=== PATIENT | female | born 1970 ===

== ENCOUNTER 2016-12-28 00:16 | Emergency (ER) | payer SELFPAY ==
[2016-12-28 00:43] VITALS: RESP 20; O2SAT 97
[2016-12-28] MEDS ORDERED: Sodium Chloride 0.9% 1,000 ML IV ONE (01:21)
[2016-12-28] MEDS ORDERED: Sodium Chloride 0.9% 1,000 ML ONE (01:40)
[2016-12-28 01:53] LABS: RBC URINE < 1 /hpf (0-3); URINE BILIRUBIN NEGATIVE (NEGATIVE); URINE BLOOD NEGATIVE (NEGATIVE); URINE COLOR Yellow (YELLOW); URINE GLUCOSE (UA) NORMAL (Normal); URINE KETONE NEGATIVE (NEGATIVE); URINE LEUKOCYTE ESTERASE NEG Leu/uL (Negative); URINE PROTEIN NEGATIVE (NEGATIVE); URINE UROBILINOGEN NORMAL mg/dL (0.2-1.0); WBC URINE 1 /hpf (0-5)
[2016-12-28 02:07] LABS: BASO # 0.1 K/uL (0.0-0.2); BASO % 0.9 % (0.0-2.0); EOS # 0.2 K/uL (0.0-0.7); EOS % 2.2 % (0.0-4.0); HEMATOCRIT 38.7 % (34.0-47.0); LYMPH % 23.4 % (20.0-40.0); MEAN CELL VOLUME 91.9 fL (81.0-99.0); MEAN CORPUSCULAR HEMOGLOBIN 30.4 pg (27.0-31.0); MEAN CORPUSCULAR HGB CONC 33.1 g/dL (33.0-37.0); MEAN PLATELET VOLUME 8.2 fL (7.2-11.7); MONO # 0.6 K/uL (0.0-0.8); MONO % 7.3 % (0.0-10.0); NRBC % 0.1 % (0.0-2.0); RED CELL DISTRIBUTION WIDTH 13.3 % (11.5-14.5); WHITE BLOOD COUNT 8.7 K/uL (4.8-10.8)
[2016-12-28 02:18] LABS: CHLORIDE 103 mmol/L (98-107); SODIUM 139 mmol/L (132-148)
[2016-12-28 02:19] LABS: POTASSIUM 3.9 mmol/L (3.6-5.2)
[2016-12-28 02:21] LABS: ALB/GLOB RATIO 1.5 (1.0-2.1); ALKALINE PHOSPHATASE 116 U/L (38-126); ALT/SGPT 24 U/L (9-52); AST/SGOT 19 U/L (14-36); BILIRUBIN,TOTAL 0.4 mg/dL (0.2-1.3); BLOOD UREA NITROGEN 14 mg/dL (7-17); CALCIUM 8.8 mg/dl (8.6-10.4); CARBON DIOXIDE 26 mmol/L (22-30); GFR AFRICAN-AMERICAN > 60; GLUCOSE,RANDOM 100 mg/dL (65-105)
[2016-12-28] MEDS ORDERED: Iodixanol 320 mg/ml 150 ml Bottle IV ONE (04:00)
--- NOTE | 2016-12-28 05:17 | C.PDOC ---
History Of Present Illness Patient is a 46 year old female who presents to the ER with a complaint of LLQ pain for several weeks. Patient states it begins at her back and radiates towards the abdomen and left leg. Patient also reports having vaginal bleeding several days ago which patient reports as abnormal since she had a hysterectomy done years ago. Denies fever, chest pain, SOB, dysuria or recent travel. Time Seen by Provider: 12/28/16 01:05 Chief Complaint (Nursing): Abdominal Pain History Per: Patient History/Exam Limitations: no limitations Onset/Duration Of Symptoms: Days (weeks) Current Symptoms Are (Timing): Still Present Location Of Pain/Discomfort: LLQ Radiation Of Pain To:: Leg, Other (Abdomen from back) Quality Of Discomfort: Unable To Describe Associated Symptoms: denies: Fever, Chest Pain, Urinary Symptoms, Other (SOB) Exacerbating Factors: None Alleviating Factors: None Recent travel outside of the [place]: No Abnormal Vaginal Bleeding: Yes Past Medical History Reviewed: Historical Data, Nursing Documentation, Vital Signs Vital Signs: Last Vital Signs Temp 98.0 F 12/28/16 04:55 Pulse 78 12/28/16 05:15 Resp 20 12/28/16 05:15 BP 124/78 12/28/16 05:15 Pulse Ox 97 12/28/16 05:38 - Medical History PMH: No Chronic Diseases Surgical History: No Surg Hx Family History: States: Unknown Family Hx - Social History Hx Alcohol Use: Yes Hx Substance Use: No - Immunization History Hx Tetanus Toxoid Vaccination: Yes Hx Influenza Vaccination: Yes Hx Pneumococcal Vaccination: No Review Of Systems Constitutional: Negative for: Fever Cardiovascular: Negative for: Chest Pain Respiratory: Negative for: Shortness of Breath Gastrointestinal: Positive for: Abdominal Pain (LLQ) Genitourinary: Positive for: Vaginal Bleeding. Negative for: Dysuria Physical Exam - Physical Exam Appears: Non-toxic, No Acute Distress Skin: Normal Color, Warm, Dry, No Pale, No Rash Head: Atraumatic, Normacephalic Eye(s): bilateral: Normal Inspection Ear(s): Bilateral: Normal Oral Mucosa: Moist Neck: Normal ROM, Supple Chest: Symmetrical, No Tenderness Cardiovascular: Rhythm Regular, No Friction Rub, No Murmur Respiratory: Normal Breath Sounds, No Rales, No Rhonchi, No Wheezing Gastrointestinal/Abdominal: Bowel Sounds (active), Soft, Tenderness (Mild inconsistent LLQ tenderness), No Guarding, No Hernia Back: Normal Inspection, No CVA Tenderness Extremity: Normal ROM, No Tenderness, No Swelling Neurological/Psych: Oriented x3, Normal Speech, Normal Cognition, Normal Motor, Normal Sensation ED Course And Treatment - Laboratory Results Result Diagrams: 12/28/16 02:04 12/28/16 02:04 O2 Sat by Pulse Oximetry: 97 (Room air) Pulse Ox Interpretation: Normal - CT Scan/US CT abd/pel w/ IV contrast Other Rad Studies (CT/US): Read By Radiologist, Radiology Report Reviewed CT/US Interpretation: EXAM: CT Abdomen and Pelvis With Intravenous Contrast. CLINICAL HISTORY: 46 years old, female; Pain; Abdominal pain; Flank; Left lower quadrant (llq); Prior surgery; Surgery. date: <1 month; Additional info: Llq abd pain x2 weeks, l flank pain. TECHNIQUE: Axial computed tomography images of the abdomen and pelvis with intravenous contrast. This CT. exam was performed using one or more of the following dose reduction techniques: automated. exposure control, adjustment of the mA and/or kV according to patient size, and/or use of iterative. reconstruction technique. Coronal and sagittal reformatted images were created and reviewed. CONTRAST: 100 mL of [id number] administered intravenously. EXAM DATE/TIME: Exam ordered 12/28/2016 1: 21 AM. COMPARISON: No relevant prior studies available. FINDINGS: Lower thorax: Atelectasis in the bases. ABDOMEN: Liver: Fatty liver. Gallbladder and bile ducts: Unremarkable. No calcified stones. No ductal dilation. Pancreas : Unremarkable. No mass. No ductal dilation. Spleen: Unremarkable. No splenomegaly. Adrenals: Unremarkable. No mass. Kidneys and ureters: Unremarkable. No solid mass. No hydronephrosis. Stomach and bowel: Moderate fecal retention. Appendix: No findings to suggest acute appendicitis. PELVIS: Bladder: Unremarkable. No mass. Reproductive: Trace fluid in the pelvis. Patient status post hysterectomy. ABDOMEN and PELVIS: Intraperitoneal space: Unremarkable. No free air. No significant fluid collection. Bones/joints: Degenerative change in the spine. No acute fracture. No dislocation. Soft tissues: Small fat containing umbilical hernia. Vasculature: Unremarkable. No abdominal aortic aneurysm. Lymph nodes: Unremarkable. No enlarged lymph nodes. IMPRESSION: 1. Fatty liver. 2. Trace fluid in the pelvis. Patient status post hysterectomy. 3. Moderate fecal retention. Progress Note: CT abd/pel w/ IV contrast and urine culture ordered. Pepcid, toradol, zofran and IV fluids administered. Medical Decision Making Medical Decision Making: On re-exam, the patient reports improvement of symptoms. Lungs are CTA, heart is RRR, abdomen is soft, non-tender and tolerating PO well. Ambulatory in the ED with steady gait, Follow up with the medical doctor within 1-2 days. return if worsened. Disposition - Disposition Referrals: at [facility] [Outside] Disposition: HOME/ ROUTINE Disposition Time: 05:14 Condition: GOOD Additional Instructions: Follow up with the medical doctor within 1-2 days. return if worsened. Prescriptions: Naproxen [Naprosyn] 500 mg PO BID #20 tab traMADol [Ultram] 50 mg PO Q6 PRN #20 tab PRN Reason: Pain Instructions: Ovarian Cyst (ED) - Clinical Impression Clinical Impression: Free fluid in pelvis, Abdominal pain - Scribe Statement The provider has reviewed the documentation as recorded by the Scribzion Jimenez All medical record entries made by the Brettibzion were at my direction and personally dictated by me. I have reviewed the chart and agree that the record accurately reflects my personal performance of the history, physical exam, medical decision making, and the department course for this patient. I have also personally directed, reviewed, and agree with the discharge instructions and disposition.
[2016-12-28 05:56] VITALS: TEMP 98
[2016-12-28 06:00] VITALS: BP 124/78; PULSE 78
--- NOTE | 2016-12-28 08:46 | CT ---
PROCEDURE: CT Abdomen and Pelvis with contrast HISTORY: Left lower quadrant abdominal pain x2 weeks, L flank pain COMPARISON: None. TECHNIQUE: CT scan of the abdomen and pelvis was performed after intravenous administration of contrast. Oral contrast was not administered. Coronal and sagittal reformatted images were obtained. Contrast dose: 100 mL Visipaque Radiation dose: Total exam DLP = 431.17 mGy-cm. This CT exam was performed using one or more of the following dose reduction techniques: Automated exposure control, adjustment of the mA and/or kV according to patient size, and/or use of iterative reconstruction technique. FINDINGS: LOWER THORAX: There is linear atelectasis/ scar in the left lung base. There is bibasilar dependent atelectasis. LIVER: There is mild hepatomegaly and diffuse low-attenuation in the liver. No gross lesion or ductal dilatation. GALLBLADDER AND BILE DUCTS: No calcified gallstones. PANCREAS: Normal in size and appearance. No gross lesion or ductal dilatation. SPLEEN: Normal in size and appearance. ADRENALS: Normal in size without discrete nodules. KIDNEYS AND URETERS: Normal in size and appearance. No hydronephrosis. No solid mass. VASCULATURE: No aortic aneurysm. BOWEL: The small bowel loops are normal in CT. No obstruction. No gross mural thickening. There is moderate amount of stool in the ascending and transverse colon. APPENDIX: Normal appendix. PERITONEUM: Small amount of free fluid in the pelvis is likely physiologic. No free air. LYMPH NODES: No enlarged lymph nodes. BLADDER: Unremarkable. REPRODUCTIVE: The uterus is surgically absent. BONES: No acute fracture. There is advanced degenerative disc disease at L4-5. OTHER FINDINGS: None. IMPRESSION: Mild hepatomegaly and hepatic steatosis. A preliminary report was provided by [employer].
== END 2016-12-28 05:15 | disposition home or self-care (01) ==
LOC: C.ER 00:16
DX: R10.32 Left lower quadrant pain (principal)
CPT/HCPCS: 74177; 80053; 81001; 83690; 84703; 85025; 87086; 96361; 96374; 96375; 99285; J1885; J2405; J7040; Q9965